=== PATIENT | female | born 1930 | race Caucasian/White ===

== ENCOUNTER 2018-01-01 04:55 | Emergency (ER) | payer MEDICARE | END 2018-01-01 06:35 | disposition home or self-care (01) | LOC: ERS 04:55 | DX: I83.92 Asymptomatic varicose veins of left lower extremity (principal); E03.9 Hypothyroidism, unspecified; K21.9 Gastro-esophageal reflux disease without esophagitis; E78.5 Hyperlipidemia, unspecified; I10 Essential (primary) hypertension; M81.0 Age-related osteoporosis without current pathological fracture; G20 Parkinson's disease; Z79.82 Long term (current) use of aspirin; Z79.02 Long term (current) use of antithrombotics/antiplatelets; Z79.899 Other long term (current) drug therapy | CPT/HCPCS: 99283 ==

== ENCOUNTER 2018-02-14 13:54 | Emergency (ER) | payer MEDICARE ==
[2018-02-14] MEDS ORDERED: Lorazepam 2 MG/ML VIAL ONE (14:29)
[2018-02-14 14:49] LABS: #Eosinphils 0.2 thou/uL (0.0-0.7); #Lymphocytes 1.3 thou/uL (1.20-3.40); #Monocytes 0.6 thou/uL (0.11-0.59); #Neutrophils 4.7 thou/uL (1.40-6.50); %Basophils 0.3 % (0.0-1.0); %Eosinophils 2.7 % (0.0-10.0); %Lymphocytes 19.5 % (21.0-51.0); %Monocytes 8.6 % (0.0-10.0); %Neutrophils 68.9 % (42.0-75.0); Hemoglobin 11.7 g/dL (12.0-16.0); Mean Corpuscular HGB CONC 33.6 g/dL (32.0-36.0); Mean Corpuscular Hemoglobin 33.2 pg (27.0-31.0); Mean Corpuscular Volume 98.8 fl (81.0-99.0); Mean Platelet Volume 8.1 fL (7.4-10.4); Platelet Count 178 thou/uL (130-400); RBC Distribution Width 12.2 % (11.5-14.5); Red Blood Cell (RBC) Count 3.51 mill/uL (4.20-5.40); White Blood Cell (WBC) Count 6.9 thou/uL (4.8-10.8)
--- NOTE | 2018-02-14 15:02 | RAD ---
PORTABLE UPRIGHT FRONTAL CHEST RADIOGRAPH: Date: 02-14-18 Comparison: 04-29-17 History: Altered mental status. FINDINGS: The patient is rotated to the right. There is mild diffuse increased interstitial density. Midline st ernotomy wires are present. No pneumothorax, pleural fluid, focal consolidation or alveolar edema. IMPRESSION: Chronic findings as described above. No radiographic evidence of acute cardiopulmonary disease. POS: [facility]
[2018-02-14 15:12] LABS: ALT (SGPT) Less than 7 U/L (8-55); AST (SGOT) 15 U/L (5-34); Albumin 3.8 g/dL (3.4-4.8); Alkaline Phosphatase 90 U/L (40-150); Anion Gap 15 mmol/L (10-20); BUN (Urea Nitrogen) 16 mg/dL (9.8-20.1); Bilirubin, Total 0.7 mg/dL (0.2-1.2); Calc. Creatinine Clearance 0 mL/min (70-130); Calcium 9.6 mg/dL (7.8-10.44); Carbon Dioxide 25 mmol/L (23-31); Chloride 97 mmol/L (98-107); Estimated GFR-MDRD 59; Globulin 2.7 g/dL (2.4-3.5); Glucose 98 mg/dL (83-110); Potassium 3.8 mmol/L (3.5-5.1); Protein, Total 6.5 g/dL (6.0-8.3); Sodium 133 mmol/L (136-145)
== END 2018-02-14 18:43 | disposition home or self-care (01) ==
LOC: ERS 13:54
DX: G20 Parkinson's disease (principal); E03.9 Hypothyroidism, unspecified; K21.9 Gastro-esophageal reflux disease without esophagitis; E78.5 Hyperlipidemia, unspecified; I10 Essential (primary) hypertension; Z79.899 Other long term (current) drug therapy; Z79.82 Long term (current) use of aspirin
CPT/HCPCS: 36415; 51701; 71045; 80053; 85025; 96361; 96374; A4353; J2060

== ENCOUNTER 2018-02-26 08:03 | Inpatient (IN) | payer MEDICARE ==
[2018-02-26] MEDS ORDERED: Nitroglycerin 0.4 MG TAB (25 Tab Bottle) ONE (08:32)
[2018-02-26] MEDS ORDERED: Water For Inject, Bacteriostat 30 ML ONE (08:36)
[2018-02-26] MEDS ORDERED: methylPREDNISolone Sod Succ/PF 125 MG/2 ML VIAL ONE (08:36)
[2018-02-26] MEDS ORDERED: diphenhydrAMINE 50 MG/ML VIAL ONE (08:36)
[2018-02-26 08:45] LABS: #Eosinphils 0.2 thou/uL (0.0-0.7); #Lymphocytes 5.2 thou/uL (1.20-3.40); #Monocytes 0.9 thou/uL (0.11-0.59); #Neutrophils 6.3 thou/uL (1.40-6.50); %Basophils 0.1 % (0.0-1.0); %Eosinophils 1.3 % (0.0-10.0); %Lymphocytes 41.4 % (21.0-51.0); %Monocytes 7.2 % (0.0-10.0); Hemoglobin 12.2 g/dL (12.0-16.0); Mean Corpuscular HGB CONC 32.7 g/dL (32.0-36.0); Mean Corpuscular Hemoglobin 33.3 pg (27.0-31.0); Platelet Count 218 thou/uL (130-400); RBC Distribution Width 12.5 % (11.5-14.5); Red Blood Cell (RBC) Count 3.67 mill/uL (4.20-5.40); White Blood Cell (WBC) Count 12.7 thou/uL (4.8-10.8)
[2018-02-26] MEDS ORDERED: Cefepime 2 GM, Syringe 2.5 ML in Sodium Chloride 0.9% 10 ML SLOW IVP SCH (08:45)
[2018-02-26] MEDS ORDERED: Famotidine/PF 20 mg/2ml Vial ONE (08:46)
[2018-02-26] MEDS ORDERED: Famotidine 20 MG TAB ONE (08:46)
[2018-02-26] MEDS ORDERED: Heparin 25,000 units/D5W 500 ML ONE (08:51)
[2018-02-26] MEDS ORDERED: Aspirin 300 MG Suppository ONE (08:51)
--- NOTE | 2018-02-26 09:02 | RAD ---
PORTABLE CHEST: Date: 02/26/18 HISTORY: Shortness of breath. COMPARISON: 02/14/18. FINDINGS: The lung mcnally appear clear. No infiltrate or vascular congestion. Heart size within normal range. P ostop sternotomy changes are noted. IMPRESSION: No acute process. POS: [facility]
[2018-02-26 09:04] LABS: ALT (SGPT) 21 U/L (8-55); AST (SGOT) 18 U/L (5-34); Albumin 4.2 g/dL (3.4-4.8); Alkaline Phosphatase 103 U/L (40-150); Anion Gap 27 mmol/L (10-20); BUN (Urea Nitrogen) 20 mg/dL (9.8-20.1); Bilirubin, Total 0.6 mg/dL (0.2-1.2); CK (CPK) 67 U/L (29-168); Calc. Creatinine Clearance 0 mL/min (70-130); Calcium 10.2 mg/dL (7.8-10.44); Carbon Dioxide 13 mmol/L (23-31); Chloride 102 mmol/L (98-107); Estimated GFR-MDRD 42; Globulin 3.4 g/dL (2.4-3.5); Glucose 265 mg/dL (83-110); Potassium 4.4 mmol/L (3.5-5.1); Protein, Total 7.6 g/dL (6.0-8.3); Sodium 138 mmol/L (136-145)
[2018-02-26 09:05] LABS: CKMB 2.4 ng/mL (0-6.6); Troponin I 0.102 ng/mL (< 0.028)
[2018-02-26 09:14] LABS: PTT 24.1 SEC (22.9-36.1); Prothrombin Time 13.6 SEC (12.0-14.7)
[2018-02-26 09:37] LABS: Base Excess-Venous -6.9 mmol/L (0 (+/- 2.5)); CO2 Tension (PvCO2) 24.2 mmHg (41.0-51.0); Calcium, Ionized 1.07 mmol/L (1.12-1.32); Hemoglobin - Calc 10.6 g/dL (12.0-18.0); O2 Tension (PvO2) 111.8 mmHg (35.0-45.0); Potassium 3.1 mmol/L (3.4-4.7); T. Carbon Dioxide 16.8 mmol/L (1.0-85.0); pH (Venous) 7.429 (7.35-7.45); vO2 Saturation-calc 98.6 % (94-98)
[2018-02-26 09:50] LABS: Lactic Acid 10.7 mmol/L (0.5-2.2)
[2018-02-26 10:17] LABS: Hemoglobin 10.2 g/dL (12.0-16.0)
[2018-02-26 10:59] LABS: Bilirubin Negative (Negative); Blood, Urine Trace (Negative); Glucose, Urine (Dipstick) Negative (Negative); Leukocyte Small (Negative); Nitrite Negative (Negative); Protein, Urine (Dipstick) Trace mg/dL (Neg-Trace); Urobilinogen 0.2 mg/dL (0.2-1.0); pH, Urine 7.5 (5.0-9.0)
[2018-02-26 11:00] LABS: Clarity CLEAR (Clear)
[2018-02-26 11:09] LABS: Bacteria/HPF 1+ HPF (None Seen); Hyaline Casts/LPF NONE SEEN LPF (0-3 Hyaline); RBC/HPF 0-3 HPF (0-3); Squamous Epithelial 0-3 HPF (0-3)
--- NOTE | 2018-02-26 11:45 | HP ---
PRIMARY CARE PHYSICIAN: Dr. Kofi Clay. REASON FOR ADMISSION: Lactic acidosis. HISTORY OF PRESENT ILLNESS: An 87-year-old female who lives at [facility]. Patient has Parkinson's disease. This morning, the patient was complaining of shortness of breath and she was having generalized tremor. The patient appeared sick and she was febrile. Patien t was tachycardic and tachypneic. She was shivering and that is why she was sent to emergency room f or evaluation. Unfortunately, this patient was not able to provide any history because of her cognit navi status when she arrived to emergency room, but her was present who provided some history. In the emergency room, patient was tachycardic with pulse 140, temperature 101.7 and she was hyperten sive as well as tachypneic. Sepsis alert was initiated. Initially there was concern of non-STEMI/ST CASSANDRA and that is why Dr. Ang came by and saw this patient, but patient was not having any STEMI and that is why cardiac catheterization was not done. This patient's routine blood tests showed lact ic acidosis. She also had leukocytosis and indeterminate troponin. Patient has a DNR status, which is confirmed with the patient's at bedside. REVIEW OF SYSTEMS: The following complete review of systems was negative, unless otherwise mentioned in the HPI or below: Constitutional: Weight loss or gain, ability to conduct usual activities. Skin: Rash, itching. Eyes: Double vision, pain. ENT/Mouth: Nose bleeding, neck stiffness, pain, tenderness. Cardiovascular: Palpitations, dyspnea on exertion, orthopnea. Respiratory: Shortness of breath, wheezing, cough, hemoptysis, fever or night sweats. Gastrointestinal: Poor appetite, abdominal pain, heartburn, nausea, vomiting, constipation, or diarr hea. Genitourinary: Urgency, frequency, dysuria, nocturia. Musculoskeletal: Pain, swelling. Neurologic/Psychiatric: Anxiety, depression. Allergy/Immunologic: Skin rash, bleeding tendency. Please see my HPI for pertinent positive and negative. All other review of systems reviewed and nega tive except as mentioned in the HPI. This patient is responsive to questions, but reliability of review of system is uncertain because of her current cognitive status. ALLERGIES: DEMEROL, IODINE. CURRENT HOME MEDICATIONS: Alpha lipoic acid 600 mg p.o. daily, amantadine 100 mg twice daily, Amitiz a 24 mcg twice daily, Asmanex inhaler daily, aspirin 81 mg p.o. daily, Lipitor 20 mg p.o. daily, carb idopa/levodopa 25/100 one tablet 4 times daily, clonidine 0.1 mg p.r.n. basis twice daily, Dexilant 3 0 mg p.o. daily, Exelon patch every day, folic acid 1 mg p.o. daily, gabapentin 600 mg p.o. at bedtim e, Synthroid 50 mcg p.o. daily, losartan 100 mg p.o. daily, melatonin 10 mg p.o. at bedtime, Toprol-X L 50 mg p.o. daily, mirabegron 25 mg p.o. daily, nizatidine 150 mg twice daily, Plavix 75 mg p.o. florecita ly, amlodipine 5 mg p.o. daily, chlorthalidone 25 mg p.o. daily, Ativan 1 mg p.o. q.6 hourly p.r.n. PAST MEDICAL HISTORY: Parkinson's disease, hypertension, gastroesophageal reflux disease, hypothyroi dism, recurrent urinary tract infection, dyslipidemia, chronic constipation, aortic valve replacement in 2013 at [facility], dementia, osteoporosis, and dysphagia on modified diet. PAST SURGICAL HISTORY: Aortic valve replacement, exploratory laparotomy for tubal , catarac t surgery, implanted device for urinary incontinence. PAST PSYCHIATRIC HISTORY: Dementia. SOCIAL HISTORY: Patient lives at [facility] living [facility] [place] with her . No h istory of tobacco, alcohol or illicit drug abuse. FAMILY HISTORY: Positive for stroke to her father. CODE STATUS: I spoke with the patient's and he does not want to be resuscitated on her in ca se of cardiopulmonary arrest and patient's is surrogate decision maker. EMERGENCY ROOM COURSE: The patient has received Maxipime 2 gram, Levaquin 750 mg. Patient was also given initially heparin drip, aspirin 324 mg, Pepcid 20 mg, Solu-Medrol 125 mg, Benadryl 50 mg, nitro glycerin 0.4 mg, vancomycin 1 gram, and IV fluid 2 liter. PHYSICAL EXAMINATION: VITAL SIGNS: On arrival, blood pressure 185/124, pulse 140, respiratory rate 26, temperature 101.7, saturation 96% on room air, weight 52.1 kilograms. GENERAL: Patient currently appears confused, follows simple command, respond to verbal questions, ge neralized shaky, tachycardic, hypertensive, and afebrile. HEAD: Normocephalic, atraumatic. EYES: Pupils round, reactive to light. Extraocular muscle intact. ENT: Dry mucous membranes, no oral lesion, no pharyngeal erythema, no exudate. NECK: Supple, no JVD, no thyromegaly, no carotid bruit, no jugular venous distention. LUNGS: Clear to auscultation without any rhonchi or rales. CARDIAC: S1 and S2 regular, tachycardia, no obvious murmur noted, no gallop, no rub. ABDOMEN: Soft, bowel sounds present, nontender, nondistended. No organomegaly, no mass, no suprapub ic tenderness. BACK: Examination unremarkable, no point tenderness. No CVA tenderness. EXTREMITIES: Upper extremity passive movements of all joints are normal. Lower extremity passive mo vements of all joints are normal. NEUROLOGIC: Patient does have gross tremor of both upper and lower extremity, no seizure activity. Difficult to assess neurologically, but she moves all 4 limbs. Her speech is normal. Responds to pa inful stimuli as well and sensation appears to be normal. SKIN: No skin rash. PSYCHIATRIC: Normal affect. HEMATOLOGICAL SYSTEM: No lymphadenopathy. IMAGING DATA AND SIGNIFICANT LABORATORY DATA: 1. EKG showing sinus tachycardia/supraventricular tachycardia, incomplete right bundle branch block pattern, ST-T changes in the anterolateral lead. 2. Chest x-ray based on my review, no acute cardiopulmonary process. 3. CBC: WBC 12.7, hemoglobin 12.2, platelet 218. INR 1.0. 4. VBG: A pH 7.42, pCO2 24.2, pO2 111.8, bicarbonate 16. 5. BMP: Sodium 138, potassium 4.4, chloride 102, carbon dioxide 13, anion gap 27, BUN 20, creatinin e 1.22, glucose 265, calcium 10.2, lactic acid 14.7. 6. LFT: AST 18, ALT 21, alkaline phosphatase 103, albumin 4.2, CK 67, CK-MB 2.4, troponin 0.102. U rinalysis: Leukocyte esterase small. Influenza A and B negative. ASSESSMENT AND PLAN/IMPRESSION: 1. Sepsis. The patient meets sepsis criteria as she has have fever of 101, tachycardia, tachypnea, leukocytosis and lactic acidosis. Source of infection is unclear, but suspecting urinary tract infec tion. We will check urinalysis and send urine culture. Her chest x-ray is normal. Her LFT is also normal. Her skin examination is unremarkable. We will start broad spectrum antibiotic therapy with cefepime, Levaquin, vancomycin and based on culture result, we will narrow down antibiotic spectrum. 2. Altered mental status, likely related with the sepsis and this is consistent with acute encephalo kath. 3. Lactic acidosis likely related with a part of sepsis. Patient will be given IV fluid and we will monitor lactic acid level. We will also check total CK level which is normal. 4. Demand ischemia of myocardium. We will do serial cardiac enzymes x3 to rule out acute coronary s yndrome. 5. Macrocytosis. We will start folic acid and vitamin B12 therapy while in hospital. 6. Hypokalemia. We will replace potassium with IV fluid. 7. Urinary tract infection. We will follow up urine culture result. Patient is already on broad sp ectrum antibiotic therapy. 8. Parkinson's disease. We will continue amantadine 100 mg twice daily, carbidopa/levodopa 25/100 o ne tablet 4 times daily. 9. Dementia. We will continue Exelon patch every day. 10. Hypothyroidism. We will continue Synthroid 50 mcg p.o. daily and check TSH level. 11. Chronic constipation. Continue Amitiza 24 mcg twice daily. 12. Dyslipidemia. Continue Lipitor 20 mg p.o. at bedtime. 13. Hypertension. We will continue losartan 100 mg p.o. daily, metoprolol succinate 50 mg p.o. khushi y, amlodipine 5 mg p.o. daily and chlorthalidone 25 mg p.o. daily. 14. Anxiety with depression. We will continue lorazepam on p.r.n. basis. 15. Gastroesophageal reflux disease. We will continue Protonix 40 mg p.o. daily. 16. Asthma/chronic obstructive pulmonary disease. We will continue Dulera 2 puff inhalation daily. 17. Deep venous thrombosis prophylaxis, Lovenox 40 mg subcu daily. 18. Gastrointestinal prophylaxis, Protonix 40 mg p.o. daily. CODE STATUS: I spoke with the patient's , patient is DNR. Patient's is surrogate dec ision maker. Disposition plan based on clinical course. We are expecting patient's stay in hospital more than 2 m idnights. Plan of care discussed with the patient and patient's at bedside in the emergency room.
[2018-02-26] MEDS ORDERED: Senokot 8.6 MG TAB PO PRN (12:06)
[2018-02-26] MEDS ORDERED: Ondansetron HCl/PF 4 MG/2 ML Vial IVP PRN (12:06)
[2018-02-26] MEDS ORDERED: Diabetic Tussin 200 MG/10 ML UDCUP PO PRN (12:06)
[2018-02-26] MEDS ORDERED: Zolpidem Tartrate 5 MG TAB PO PRN (12:06)
[2018-02-26] MEDS ORDERED: Mag-Al 1200 mg/1200 mg/30 ML UDCUP PO PRN (12:06)
[2018-02-26] MEDS ORDERED: cloNIDine 0.1 MG TAB PO PRN (12:06)
[2018-02-26] MEDS ORDERED: Loratadine 10 MG TAB PO PRN (12:06)
[2018-02-26] MEDS ORDERED: Loperamide HCl 2 MG CAP PO PRN (12:06)
[2018-02-26] MEDS ORDERED: Eucerin (Mineral Oil/Petrolatum,White) 30 gm Jar TOP PRN (12:06)
[2018-02-26] MEDS ORDERED: Artificial Tear Sol 15 ML BOT EA EYE PRN (12:06)
[2018-02-26] MEDS ORDERED: Ondansetron ODT 4 MG TAB PO PRN (12:06)
[2018-02-26] MEDS ORDERED: hydrALAZINE 20 MG/ML VIAL SLOW IVP PRN (12:06)
[2018-02-26] MEDS ORDERED: Melatonin 3 MG TAB PO PRN (12:06)
[2018-02-26] MEDS ORDERED: Lorazepam 1 MG TAB PO PRN (12:06)
[2018-02-26] MEDS ORDERED: HYDROcodone/Acetaminophen 5/325 mg Tablet PO PRN (12:06)
[2018-02-26] MEDS ORDERED: Chloraseptic Spray 180 ml Bottle PO PRN (12:06)
[2018-02-26] MEDS ORDERED: Sodium Chloride 0.65% Nasal 44 ML BOT EA NARE PRN (12:06)
[2018-02-26] MEDS ORDERED: Milk Of Magnesia 30 ML UDCUP PO PRN (12:06)
[2018-02-26 12:56] LABS: Lactic Acid 2.7 mmol/L (0.5-2.2)
--- NOTE | 2018-02-26 14:02 | CON ---
DATE OF CONSULTATION: 02/26/2018 CRITICAL CARE NOTE REASON FOR CONSULTATION: Acute myocardial infarction. HISTORY OF PRESENT ILLNESS: Ms. Ybarra is a very pleasant 87-year-old woman who was seen and evaluate d in the past. She has a history of advanced Parkinson's disease. Most of the history is obtained f rom her . He states she began having shakiness early this morning. She was given Ativan with some improvement. This then continued. EMS was summoned. She was seen and evaluated in the emerge ncy room where she was found to have a fever of 102. EKG was also performed. Her states she denied any chest pain, although patient states she did have some mild discomfort. EKG did suggest S T segment elevation noted laterally. PAST MEDICAL HISTORY: Aortic valve replacement, advanced Parkinson's disease, hyperlipidemia, hypert ension, acid reflux, seasonal allergies, TIA. ALLERGIES: MEPERIDINE, IODINE. HOME MEDICATIONS: Include Plavix, Exelon patch, carbidopa, Janel-C, melatonin, folic acid, Dexilant, Myrbetriq, amantadine, gabapentin, Imodium, MiraLax, ProAir, clonidine, aspirin, and Asmanex. REVIEW OF SYSTEMS: Difficult to obtain. PHYSICAL EXAMINATION: GENERAL: Patient is a pleasant female who is in no acute distress. The patient appears her stated a ge. Significant tremors present. VITAL SIGNS: Blood pressure 110/70, pulse 80, respirations 20. NEUROLOGIC: The patient is alert and oriented times 3 with no focal neurologic deficits. HEENT: Sclerae without icterus. Mouth has moist mucous membranes with normal pallor. NECK: No JVD. Carotid upstroke brisk. No bruits bilaterally. LUNGS: Clear to auscultation with unlabored respirations. BACK: No scoliosis or kyphosis. CARDIAC: Regular rate and rhythm with normal S1 and S2. No S3 or S4 noted. No significant rubs, mu rmurs, thrills, or gallops noted throughout the precordium. PMI is not displaced. There is no uma ternal heave. ABDOMEN: Soft, nontender, nondistended. No peritoneal signs present. No hepatosplenomegaly. No ab normal striae. EXTREMITIES: 2+ femoral and 2+ dorsalis pedis pulses. No cyanosis, clubbing, or edema. SKIN: No gross abnormalities. PERTINENT LABORATORY DATA AND IMAGING DATA: Peak troponin 0.102. EKG; normal sinus rhythm, ST segme nt elevation noted laterally. IMPRESSION: 1. Acute myocardial infarction. 2. Febrile illness of unknown etiology. 3. Advanced Parkinson's disease. 4. CONTRAST allergy. RECOMMENDATIONS: I had a long discussion with the about how to proceed. The patient states that both he and his do not wish for any heroic measures. He states her quality of life at this point is extremely poor. I did state to proceeding with a more aggressive approach. At this point, would not change her quality of life. She would like to proceed with a more conservative approach. He does not want to proceed with angiography. At this point, we would proceed with heparin drip, an tibiotic therapy, IV fluids and continue supportive care. Patient is DNR/DNI. ST elevation may also be due to pericarditis given minimal to no symptoms but cannot completely exclude acute myocardial i nfarction. We will continue to rule out by CK and troponins.
[2018-02-26] MEDS ORDERED: Labetalol HCl 100 MG/20 ML VIAL ONE (14:30)
[2018-02-26] MEDS ORDERED: Heparin 10,000 UNITS/ 10 ML VIAL ONE (16:00)
[2018-02-26] MEDS: NS 0.9% w/ 20 MEQ KCL 1,000 ML/1,000 ML BAG IV SCH (18:17)
[2018-02-26] MEDS: Lubiprostone 24 MCG CAP PO SCH (18:17)
[2018-02-26] MEDS: Carbidopa/Levodopa 25-100 mg Tablet PO SCH ×3 (18:17→21:23)
[2018-02-26 18:18] LABS: CKMB 29.9 ng/mL (0-6.6); Troponin I 4.493 ng/mL (< 0.028)
[2018-02-26] MEDS: Mometasone 200 MCG HFA INHALER INH SCH (18:38)
[2018-02-26] MEDS ORDERED: Cefepime 2 GM in Sodium Chloride 0.9% 100 ML IVPB SCH (21:00)
[2018-02-26] MEDS: Amantadine HCl 100 mg Capsule PO SCH (21:21)
[2018-02-26] MEDS: Atorvastatin Calcium 20 MG TAB PO SCH (21:22)
[2018-02-26] MEDS: Gabapentin 300 MG CAP PO SCH (21:23)
[2018-02-26] MEDS: Acetaminophen 650 MG Suppository PR PRN (21:29)
[2018-02-26] MEDS: Cefepime 2 GM, Syringe 2.5 ML in Sodium Chloride 0.9% 10 ML SLOW IVP SCH (21:37)
[2018-02-27] MEDS: NS 0.9% w/ 20 MEQ KCL 1,000 ML/1,000 ML BAG IV SCH ×3 (03:11→20:32)
[2018-02-27] MEDS: Levothyroxine Sodium 50 MCG TAB PO SCH (06:11)
[2018-02-27 06:16] LABS: Lactic Acid 1.1 mmol/L (0.5-2.2)
[2018-02-27 06:21] LABS: #Lymphocytes 1.3 thou/uL (1.20-3.40); #Monocytes 1.1 thou/uL (0.11-0.59); #Neutrophils 7.7 thou/uL (1.40-6.50); %Basophils 0.2 % (0.0-1.0); %Eosinophils 0.2 % (0.0-10.0); %Monocytes 10.4 % (0.0-10.0); %Neutrophils 76.3 % (42.0-75.0); Hemoglobin 9.3 g/dL (12.0-16.0); Mean Corpuscular HGB CONC 33.7 g/dL (32.0-36.0); Mean Corpuscular Hemoglobin 33.2 pg (27.0-31.0); Mean Corpuscular Volume 98.4 fl (81.0-99.0); Mean Platelet Volume 8.2 fL (7.4-10.4); Platelet Count 167 thou/uL (130-400); RBC Distribution Width 12.6 % (11.5-14.5); White Blood Cell (WBC) Count 10.1 thou/uL (4.8-10.8)
[2018-02-27 06:26] LABS: ALT (SGPT) Less than 7 U/L (8-55); AST (SGOT) 47 U/L (5-34); Albumin 3.4 g/dL (3.4-4.8); Alkaline Phosphatase 76 U/L (40-150); Anion Gap 13 mmol/L (10-20); BUN (Urea Nitrogen) 19 mg/dL (9.8-20.1); Bilirubin, Total 0.6 mg/dL (0.2-1.2); Calc. Creatinine Clearance 43 mL/min (70-130); Calcium 8.6 mg/dL (7.8-10.44); Carbon Dioxide 22 mmol/L (23-31); Chloride 111 mmol/L (98-107); Estimated GFR-MDRD 66; Globulin 2.4 g/dL (2.4-3.5); Glucose 136 mg/dL (83-110); Potassium 3.4 mmol/L (3.5-5.1); Protein, Total 5.8 g/dL (6.0-8.3); Sodium 143 mmol/L (136-145)
[2018-02-27 06:30] LABS: Troponin I 10.453 ng/mL (< 0.028)
[2018-02-27] MEDS ORDERED: Potassium Chloride 20 MEQ TAB PO SCH (06:45)
[2018-02-27 06:58] LABS: Cardiac Risk 2.3 (Less than 4.5); Magnesium 1.5 mg/dL (1.6-2.6)
[2018-02-27] MEDS: Mometasone 200 MCG HFA INHALER INH SCH ×2 (07:29→20:01)
[2018-02-27] MEDS ORDERED: Magnesium Sulfate 4 GM in Sodium Chloride 0.9% 250 ML 250 ML IVPB SCH (07:30)
[2018-02-27 08:27] VITALS: BMI 24.4
[2018-02-27] MEDS ORDERED: Chlorthalidone 25 MG TAB PO SCH (09:00)
[2018-02-27] MEDS ORDERED: RASAGILINE MESYLATE 1 MG PO SCH (09:00)
[2018-02-27] MEDS ORDERED: ZINC PO SCH (09:00)
[2018-02-27] MEDS ORDERED: VIT A PO SCH (09:00)
[2018-02-27] MEDS ORDERED: Enoxaparin Sodium 40 MG/0.4 ML SYRINGE SC SCH (09:00)
[2018-02-27] MEDS ORDERED: VIT E PO SCH (09:00)
[2018-02-27] MEDS ORDERED: ALPHA LIPOIC ACID 600 MG PO SCH (09:00)
[2018-02-27] MEDS ORDERED: COPPER PO SCH (09:00)
[2018-02-27] MEDS ORDERED: VIT C PO SCH (09:00)
--- NOTE | 2018-02-27 10:04 | PDOC.PN ---
- Subjective Encounter Start Date: 02/27/18 Encounter Start Time: 07:30 Patient seen and examined. No new complaints. No overnight events pt is sleepy, bedside - Objective Resuscitation Status: Resuscitation Status DNR:Do Not Resuscitate MAR Reviewed: Yes Vital Signs & Weight: Vital Signs (12 hours) Temp Pulse Resp BP Pulse Ox 02/27/18 07:31 96 02/27/18 07:29 90 17 96 02/27/18 04:00 98.9 F 94 18 127/65 94 L 02/27/18 00:00 100.4 F H Weight Admit Weight 121 lb 6.4 oz Weight 125 lb 3.2 oz I&O: 02/26/18 02/27/18 02/28/18 06:59 06:59 06:59 Intake Total 1089 Balance 1089 Result Diagrams: 02/27/18 05:42 02/27/18 05:42 EKG Reviewed by me: Yes Phys Exam - Physical Examination Constitutional: NAD HEENT: PERRLA, moist MMs, sclera anicteric Neck: no JVD, supple Respiratory: no wheezing, no rales, no rhonchi Cardiovascular: RRR, no significant murmur, no rub Gastrointestinal: soft, non-tender, no distention, positive bowel sounds Musculoskeletal: no edema, pulses present Neurological: non-focal, moves all 4 limbs Lymphatic: no nodes Psychiatric: normal affect Skin: no rash, normal turgor Dx/Plan (1) NSTEMI (non-ST elevated myocardial infarction) Code(s): I21.4 - NON-ST ELEVATION (NSTEMI) MYOCARDIAL INFARCTION Status: Acute (2) Encephalopathy acute Code(s): G93.40 - ENCEPHALOPATHY, UNSPECIFIED Status: Acute (3) Demand ischemia of myocardium Code(s): I24.8 - OTHER FORMS OF ACUTE ISCHEMIC HEART DISEASE Status: Acute (4) Hypokalemia Code(s): E87.6 - HYPOKALEMIA Status: Acute (5) Lactic acidosis Code(s): E87.2 - ACIDOSIS Status: Acute (6) Sepsis with acute organ dysfunction Code(s): A41.9 - SEPSIS, UNSPECIFIED ORGANISM; R65.20 - SEVERE SEPSIS WITHOUT SEPTIC SHOCK Status: Acute (7) UTI (urinary tract infection) Status: Acute (8) Dementia Code(s): F03.90 - UNSPECIFIED DEMENTIA WITHOUT BEHAVIORAL DISTURBANCE Status: Chronic (9) Dyslipidemia Code(s): E78.5 - HYPERLIPIDEMIA, UNSPECIFIED Status: Chronic (10) GERD (gastroesophageal reflux disease) Code(s): K21.9 - GASTRO-ESOPHAGEAL REFLUX DISEASE WITHOUT ESOPHAGITIS Status: Chronic Qualifiers: (11) H/O aortic valve replacement Code(s): Z95.2 - PRESENCE OF PROSTHETIC HEART VALVE Status: Chronic (12) HTN (hypertension) Code(s): I10 - ESSENTIAL (PRIMARY) HYPERTENSION Status: Chronic Qualifiers: (13) Hypothyroidism Code(s): E03.9 - HYPOTHYROIDISM, UNSPECIFIED Status: Chronic (14) Macrocytic anemia Code(s): D53.9 - NUTRITIONAL ANEMIA, UNSPECIFIED Status: Chronic (15) Parkinson disease Code(s): G20 - PARKINSON'S DISEASE Status: Chronic (16) Hypomagnesemia Code(s): E83.42 - HYPOMAGNESEMIA Status: Acute - Plan cont current plan of care, plan discussed w/ family, continue antibiotics * continue cefepime, levaquin and vancomycin * follow culture * medication reviewed as below * symptomatic treatment * cardiology on case * add lovenox 1 mg /kg sc bid * home medication reconciled * discussed with * get echo today * will monitor. * replace potassium and magnesium * repeat labs tomorrow Review of Systems - Review of Systems Other: today unable to review due to her sleepiness and level of her cognitive status - Medications/Allergies Allergies/Adverse Reactions: Allergies Allergy/AdvReac Type Severity Reaction Status Date / Time Iodine and Iodide Containing Allergy Verified 04/29/17 10:35 Produc meperidine HCl [From Demerol] Allergy Verified 04/29/17 10:35 Medications: Current Medications Acetaminophen (Tylenol) 650 mg PA Q4H PRN PRN Reason: Headache/Fever or Pain Last Admin: 02/26/18 21:29 Dose: 650 mg Hydrocodone Bitart/Acetaminophen ([place] 5/325) 1 tab PO Q4H PRN PRN Reason: Moderate Pain (4-6) Al Hydroxide/Mg Hydroxide (Maalox) 30 ml PO Q6H PRN PRN Reason: Heartburn or Indigestion Amantadine HCl (Symmetrel) 100 mg PO BID JEANE Last Admin: 02/26/18 21:21 Dose: 100 mg Amlodipine Besylate (Norvasc) 5 mg PO DAILY [facility] Artificial Tears (Tears Renewed 15ml Bottle) 0 drop EA EYE PRN PRN PRN Reason: Dry Eyes Aspirin (Aspirin Chewable) 81 mg PO DAILY [facility] Atorvastatin Calcium (Lipitor) 20 mg PO HS [facility] Last Admin: 02/26/18 21:22 Dose: 20 mg Carbidopa/Levodopa (Sinemet Cr 50/200) 0.5 tab PO 0600,1000,1400,1800 [facility] Carbidopa/Levodopa (Sinemet Cr 50/200) 0.5 tab PO 2200 [facility] Clonidine (Catapres) 0.1 mg PO Q4H PRN PRN Reason: Systolic BP > 180 Clopidogrel Bisulfate (Plavix) 75 mg PO DAILY [facility] Cyanocobalamin (Vitamin B-12) 1,000 mcg PO DAILY [facility] Enoxaparin Sodium (Lovenox) 60 mg SC 0900,2100 [facility] Folic Acid (Folvite) 1 mg PO DAILY [facility] Gabapentin (Neurontin) 600 mg PO HS [facility] Last Admin: 02/26/18 21:23 Dose: 600 mg Guaifenesin (Robitussin Sf) 200 mg PO Q4H PRN PRN Reason: Cough Hydralazine HCl (Apresoline) 10 mg SLOW IVP Q4H PRN PRN Reason: Systolic BP > 180 Hydrochlorothiazide (Hydrochlorothiazide) 25 mg PO QAM [facility] Levofloxacin 500 mg/ Device 100 mls @ 100 mls/hr IVPB Q24HR@1000 [facility] Potassium Chloride/Sodium Chloride (Ns 0.9% W/ 20 Meq Kcl) 1,000 ml in 1,000 mls @ 75 mls/hr IV .[id number] [facility] Last Admin: 02/27/18 03:11 Dose: 1,000 mls Vancomycin HCl 750 mg/ Sodium (Chloride) 250 mls @ 250 mls/hr IVPB Q24HR@0900 [facility] Cefepime HCl 2 gm/ Syringe 2.5 (ml/ Sodium Chloride) 12.5 mls @ 150 mls/hr SLOW IVP Q12HR [facility] Last Admin: 02/26/18 21:37 Dose: 12.5 mls Magnesium Sulfate 4 gm/ Sodium (Chloride) 258 mls @ 86 mls/hr IVPB 0730 [facility] Stop: 02/27/18 10:29 Levothyroxine Sodium (Synthroid) 50 mcg PO 0600 [facility] Last Admin: 02/27/18 06:11 Dose: 50 mcg Loperamide HCl (Imodium) 2 mg PO PRN PRN PRN Reason: Diarrhea/Loose Stools Loratadine (Claritin) 10 mg PO DAILYPRN PRN PRN Reason: Sinus Symptoms Lorazepam (Ativan) 1 mg PO Q4H PRN PRN Reason: Anxiety/Agitation Losartan Potassium (Cozaar) 100 mg PO DAILY [facility] Lubiprostone (Amitiza) 24 mcg PO BID-WM [facility] Last Admin: 02/26/18 18:17 Dose: 24 mcg Magnesium Hydroxide (Milk Of Magnesium) 30 ml PO DAILYPRN PRN PRN Reason: Constipation Melatonin (Melatonin) 10 mg PO HS [facility] Metoprolol Succinate (Toprol Xl) 50 mg PO DAILY [facility] Mineral Oil/White Petrolatum (Eucerin Cream) 0 gm TOP BIDPRN PRN PRN Reason: Dry Skin Mirabegron (Myrbetriq Er) 25 mg PO DAILY [facility] Miscellaneous Medication (Pharmacy To Dose) 1 each IVPB PRN PRN PRN Reason: Pharmacy to dose Mometasone Furoate (Asmanex Hfa 200 Mcg) 1 puff INH BID-RT [facility] Last Admin: 02/27/18 07:29 Dose: Not Given Multivitamins/Minerals (Ocuvite With Lutein) 1 tab PO BID [facility] Ondansetron HCl (Zofran Odt) 4 mg PO Q6H PRN PRN Reason: Nausea/Vomiting Ondansetron HCl (Zofran) 4 mg IVP Q6H PRN PRN Reason: Nausea/Vomiting Pantoprazole Sodium (Protonix) 40 mg PO DAILY [facility] (Alpha Lipoic Acid [ Alpha Lipoic Acid] 600 Mg) 0 each PO DAILY [facility] (Rasagiline Mesylate ([Azilect] 1 Mg)) 0 each PO DAILY [facility] Phenol (Chloraseptic [place] 180 Ml Bot) 0 ml PO PRN PRN PRN Reason: Sore Throat Rivastigmine (Exelon Patch) 9.5 mg TD DAILY [facility] Saccharomyces Boulardii (Florastor) 250 mg PO DAILY [facility] Senna (Senokot) 2 tab PO HSPRN PRN PRN Reason: Constipation Sodium Chloride ([place] Nasal [place] 0.65%) 0 ml EA NARE QIDPRN PRN PRN Reason: Nasal Congestion Sodium Chloride (Flush - Normal Saline) 10 ml IVF Q12HR JEANE Sodium Chloride (Flush - Normal Saline) 10 ml IVF PRN PRN PRN Reason: Saline Flush Zolpidem Tartrate (Ambien) 5 mg PO HSPRN PRN PRN Reason: Insomnia
[2018-02-27] MEDS: Vancomycin HCl 750 MG in Sodium Chloride 0.9% 250 ML 250 ML IVPB SCH (11:00)
[2018-02-27] MEDS: Lubiprostone 24 MCG CAP PO SCH ×3 (11:01→18:43)
[2018-02-27] MEDS: Rivastigmine 9.5mg/24 Hour PATCH TD SCH (11:01)
[2018-02-27] MEDS: Losartan 25 MG TAB PO SCH (11:02)
[2018-02-27] MEDS: Clopidogrel Bisulfate 75 MG TAB PO SCH (11:02)
[2018-02-27] MEDS: Hydrochlorothiazide 25 MG TAB PO SCH (11:02)
[2018-02-27] MEDS: Vit A,C & E/Lutein/Minerals Tablet PO SCH ×2 (11:02→20:11)
[2018-02-27] MEDS: Carbidopa/Levodopa CR 50-200 mg Tablet PO SCH ×4 (11:03→20:38)
[2018-02-27] MEDS: Cyanocobalamin (Vitamin B-12) 1,000 MCG TAB PO SCH (11:03)
[2018-02-27] MEDS: Amantadine HCl 100 mg Capsule PO SCH ×2 (11:06→20:11)
[2018-02-27] MEDS: Saccharomyces boulardii 250 MG CAP PO SCH (11:06)
[2018-02-27] MEDS: Amlodipine 5 MG TAB PO SCH (11:07)
[2018-02-27] MEDS: Folic Acid 1 MG TAB PO SCH (11:07)
[2018-02-27] MEDS: Enoxaparin Sodium 60 MG/0.6 ML SYRINGE SC SCH ×2 (11:12→20:12)
[2018-02-27] MEDS: Cefepime 2 GM, Syringe 2.5 ML in Sodium Chloride 0.9% 10 ML SLOW IVP SCH ×2 (11:23→20:15)
--- NOTE | 2018-02-27 15:32 | PRG ---
DATE OF SERVICE: 02/27/2018 SUBJECTIVE: Ms. Ybarra's status is stable. She has no current complaints. Her troponin was mildly e levated at 4. Echo is currently pending. PHYSICAL EXAMINATION: VITAL SIGNS: Blood pressure 136/63, pulse 88, temperature afebrile. LUNGS: Clear to auscultation. CARDIAC: Regular rate and rhythm. ABDOMEN: Soft, nontender, nondistended. EXTREMITIES: No edema. PERTINENT LABORATORY DATA: Hemoglobin 9.3. CK-MB down trending from 29-27 with a troponin of 10. IMPRESSION: 1. Acute myocardial infarction. 2. Sepsis syndrome. 3. Advanced Parkinson's disease. RECOMMENDATIONS: Continue current medical therapy. She is currently on Lovenox. We will continue o thee the next 24 hours. She is currently asymptomatic. Continue antibiotic treatment. She has not h ad fever over the last 12 hours. Continue conservative therapy.
[2018-02-27] MEDS: Acetaminophen 650 MG Suppository PR PRN (19:39)
[2018-02-27] MEDS: Atorvastatin Calcium 20 MG TAB PO SCH (20:11)
[2018-02-27] MEDS: Gabapentin 300 MG CAP PO SCH (20:11)
[2018-02-27] MEDS: Melatonin 3 MG TAB PO SCH (20:15)
[2018-02-27] MEDS ORDERED: LEVODOPA PO SCH (21:00)
[2018-02-27] MEDS ORDERED: CARBIDOPA PO SCH (21:00)
[2018-02-28] MEDS: NS 0.9% w/ 20 MEQ KCL 1,000 ML/1,000 ML BAG IV SCH ×2 (03:59→09:15)
[2018-02-28 05:24] LABS: Anion Gap 12 mmol/L (10-20); BUN (Urea Nitrogen) 18 mg/dL (9.8-20.1); Calc. Creatinine Clearance 51 mL/min (70-130); Calcium 8.5 mg/dL (7.8-10.44); Carbon Dioxide 22 mmol/L (23-31); Chloride 115 mmol/L (98-107); Estimated GFR-MDRD 80; Glucose 124 mg/dL (83-110); Magnesium 2.1 mg/dL (1.6-2.6); Potassium 3.5 mmol/L (3.5-5.1); Sodium 145 mmol/L (136-145)
[2018-02-28 05:36] LABS: Band 4 % (5-11); Hemoglobin 9.7 g/dL (12.0-16.0); Lymphocytes 12 % (21-51); MDiff Complete? YES; Mean Corpuscular HGB CONC 33.7 g/dL (32.0-36.0); Mean Corpuscular Hemoglobin 33.5 pg (27.0-31.0); Mean Corpuscular Volume 99.5 fl (81.0-99.0); Mean Platelet Volume 8.4 fL (7.4-10.4); Monocytes 6 % (0-10); Neutrophil 78 % (42-75); PLT Morphology Comment Appears Adequate; Platelet Count 161 thou/uL (130-400); RBC Distribution Width 12.7 % (11.5-14.5); Red Blood Cell (RBC) Count 2.89 mill/uL (4.20-5.40); White Blood Cell (WBC) Count 14.3 thou/uL (4.8-10.8)
[2018-02-28] MEDS: Mometasone 200 MCG HFA INHALER INH SCH ×2 (07:41→19:11)
[2018-02-28] MEDS: Carbidopa/Levodopa CR 50-200 mg Tablet PO SCH ×5 (08:55→22:18)
[2018-02-28] MEDS: Folic Acid 1 MG TAB PO SCH (09:01)
[2018-02-28] MEDS: Cyanocobalamin (Vitamin B-12) 1,000 MCG TAB PO SCH (09:02)
[2018-02-28] MEDS: Vit A,C & E/Lutein/Minerals Tablet PO SCH ×2 (09:03→22:18)
[2018-02-28] MEDS: Hydrochlorothiazide 25 MG TAB PO SCH (09:18)
[2018-02-28] MEDS: Losartan 25 MG TAB PO SCH (09:18)
[2018-02-28] MEDS: Cefepime 2 GM, Syringe 2.5 ML in Sodium Chloride 0.9% 10 ML SLOW IVP SCH ×2 (09:32→22:16)
[2018-02-28] MEDS: Levothyroxine Sodium 50 MCG TAB PO SCH (09:42)
[2018-02-28] MEDS: Amantadine HCl 100 mg Capsule PO SCH ×2 (09:43→22:17)
[2018-02-28] MEDS: Amlodipine 5 MG TAB PO SCH (09:44)
[2018-02-28] MEDS: Enoxaparin Sodium 60 MG/0.6 ML SYRINGE SC SCH ×2 (09:51→22:15)
[2018-02-28] MEDS: Clopidogrel Bisulfate 75 MG TAB PO SCH (09:51)
[2018-02-28] MEDS: Saccharomyces boulardii 250 MG CAP PO SCH (09:51)
[2018-02-28] MEDS: Rivastigmine 9.5mg/24 Hour PATCH TD SCH (09:53)
[2018-02-28] MEDS ORDERED: Vancomycin HCl 1.25 GM in Sodium Chloride 0.9% 250 ML 250 ML IVPB SCH (10:00)
[2018-02-28] MEDS: Vancomycin HCl 750 MG in Sodium Chloride 0.9% 250 ML 250 ML IVPB SCH ×2 (10:01→10:06)
--- NOTE | 2018-02-28 11:49 | PDOC.PN ---
- Subjective Encounter Start Date: 02/28/18 Encounter Start Time: 08:00 this morning pt's and son was present bedside, pt was sleepy, last night she was given ativan, she is hypoxic and she is tachypeic, no fever today - Objective Resuscitation Status: Resuscitation Status DNR:Do Not Resuscitate MAR Reviewed: Yes Vital Signs & Weight: Vital Signs (12 hours) Temp Pulse Resp BP Pulse Ox 02/28/18 10:22 98.8 F 93 L 02/28/18 08:53 98.8 F 101 H 20 93 L 02/28/18 08:50 99.6 F 101 H 20 174/80 H 90 L 02/28/18 04:00 98.1 F 94 18 147/69 H 92 L Weight Admit Weight 121 lb 6.4 oz Weight 125 lb 3.2 oz I&O: 02/27/18 02/28/18 03/01/18 06:59 06:59 06:59 Intake Total 1089 360 Balance 1089 360 Result Diagrams: 02/28/18 04:28 02/28/18 04:28 Radiology Reviewed by me: Yes (chest xray) EKG Reviewed by me: Yes (tachycardia) Phys Exam - Physical Examination Constitutional: NAD sleepy HEENT: PERRLA, sclera anicteric Neck: no nodes, no JVD, supple Respiratory: no wheezing, no rales, no rhonchi Cardiovascular: RRR, no significant murmur Gastrointestinal: soft, no distention, positive bowel sounds Musculoskeletal: no edema, pulses present Neurological: moves all 4 limbs Lymphatic: no nodes Skin: no rash, normal turgor Dx/Plan (1) NSTEMI (non-ST elevated myocardial infarction) Code(s): I21.4 - NON-ST ELEVATION (NSTEMI) MYOCARDIAL INFARCTION Status: Acute (2) Encephalopathy acute Code(s): G93.40 - ENCEPHALOPATHY, UNSPECIFIED Status: Acute (3) Demand ischemia of myocardium Code(s): I24.8 - OTHER FORMS OF ACUTE ISCHEMIC HEART DISEASE Status: Acute (4) Hypokalemia Code(s): E87.6 - HYPOKALEMIA Status: Acute (5) Lactic acidosis Code(s): E87.2 - ACIDOSIS Status: Acute (6) Sepsis with acute organ dysfunction Code(s): A41.9 - SEPSIS, UNSPECIFIED ORGANISM; R65.20 - SEVERE SEPSIS WITHOUT SEPTIC SHOCK Status: Acute (7) UTI (urinary tract infection) Status: Acute (8) Dementia Code(s): F03.90 - UNSPECIFIED DEMENTIA WITHOUT BEHAVIORAL DISTURBANCE Status: Chronic (9) Dyslipidemia Code(s): E78.5 - HYPERLIPIDEMIA, UNSPECIFIED Status: Chronic (10) GERD (gastroesophageal reflux disease) Code(s): K21.9 - GASTRO-ESOPHAGEAL REFLUX DISEASE WITHOUT ESOPHAGITIS Status: Chronic Qualifiers: (11) H/O aortic valve replacement Code(s): Z95.2 - PRESENCE OF PROSTHETIC HEART VALVE Status: Chronic (12) HTN (hypertension) Code(s): I10 - ESSENTIAL (PRIMARY) HYPERTENSION Status: Chronic Qualifiers: (13) Hypothyroidism Code(s): E03.9 - HYPOTHYROIDISM, UNSPECIFIED Status: Chronic (14) Macrocytic anemia Code(s): D53.9 - NUTRITIONAL ANEMIA, UNSPECIFIED Status: Chronic (15) Parkinson disease Code(s): G20 - PARKINSON'S DISEASE Status: Chronic (16) Hypomagnesemia Code(s): E83.42 - HYPOMAGNESEMIA Status: Acute - Plan cont current plan of care, plan discussed w/ family, continue antibiotics, PT/OT , social contact worker * today echo will be done * will need placement on discharge * today chest xray ordered and reviwed * add duoneb therapy * continue current empiric antibiotics, cefepime and vancomycin * medication reviewed as below * symptomatic treatment * follow culture. * prognosis is guarded Review of Systems - Review of Systems Other: unable to review with pt due to level of her cognitive status - Medications/Allergies Allergies/Adverse Reactions: Allergies Allergy/AdvReac Type Severity Reaction Status Date / Time Iodine and Iodide Containing Allergy Verified 04/29/17 10:35 Produc meperidine HCl [From Demerol] Allergy Verified 04/29/17 10:35 Medications: Current Medications Acetaminophen (Tylenol) 650 mg MD Q4H PRN PRN Reason: Headache/Fever or Pain Last Admin: 02/27/18 19:39 Dose: 650 mg Hydrocodone Bitart/Acetaminophen ([place]ettus 5/325) 1 tab PO Q4H PRN PRN Reason: Moderate Pain (4-6) Al Hydroxide/Mg Hydroxide (Maalox) 30 ml PO Q6H PRN PRN Reason: Heartburn or Indigestion Albuterol/Ipratropium (Duoneb) 3 ml NEB [id number] [facility] Amantadine HCl (Symmetrel) 100 mg PO BID [facility] Last Admin: 02/28/18 09:43 Dose: 100 mg Amlodipine Besylate (Norvasc) 5 mg PO DAILY [facility] Last Admin: 02/28/18 09:44 Dose: 5 mg Artificial Tears (Tears Renewed 15ml Bottle) 0 drop EA EYE PRN PRN PRN Reason: Dry Eyes Aspirin (Aspirin Chewable) 81 mg PO DAILY [facility] Last Admin: 02/28/18 09:45 Dose: 81 mg Atorvastatin Calcium (Lipitor) 20 mg PO HS [facility] Last Admin: 02/27/18 20:11 Dose: 20 mg Carbidopa/Levodopa (Sinemet Cr 50/200) 0.5 tab PO 0600,1000,1400,1800 [facility] Last Admin: 02/28/18 09:15 Dose: 0.5 tab Carbidopa/Levodopa (Sinemet Cr 50/200) 0.5 tab PO 2200 [facility] Last Admin: 02/27/18 20:38 Dose: 0.5 tab Clonidine (Catapres) 0.1 mg PO Q4H PRN PRN Reason: Systolic BP > 180 Clopidogrel Bisulfate (Plavix) 75 mg PO DAILY [facility] Last Admin: 02/28/18 09:51 Dose: 75 mg Cyanocobalamin (Vitamin B-12) 1,000 mcg PO DAILY [facility] Last Admin: 02/28/18 09:02 Dose: Not Given Enoxaparin Sodium (Lovenox) 60 mg SC 0900,2100 [facility] Last Admin: 02/28/18 09:51 Dose: 60 mg Folic Acid (Folvite) 1 mg PO DAILY [facility] Last Admin: 02/28/18 09:01 Dose: Not Given Gabapentin (Neurontin) 600 mg PO HS [facility] Last Admin: 02/27/18 20:11 Dose: 600 mg Guaifenesin (Robitussin Sf) 200 mg PO Q4H PRN PRN Reason: Cough Hydralazine HCl (Apresoline) 10 mg SLOW IVP Q4H PRN PRN Reason: Systolic BP > 180 Hydrochlorothiazide (Hydrochlorothiazide) 25 mg PO QAM [facility] Last Admin: 02/28/18 09:18 Dose: 25 mg Levofloxacin 500 mg/ Device 100 mls @ 100 mls/hr IVPB Q24HR@1000 [facility] Last Admin: 02/28/18 10:21 Dose: 100 mls Cefepime HCl 2 gm/ Syringe 2.5 (ml/ Sodium Chloride) 12.5 mls @ 150 mls/hr SLOW IVP Q12HR [facility] Last Admin: 02/28/18 09:32 Dose: 12.5 mls Vancomycin HCl 1.25 gm/ Sodium (Chloride) 250 mls @ 166.667 mls/hr IVPB 1000 [facility] Levothyroxine Sodium (Synthroid) 50 mcg PO 0600 [facility] Last Admin: 02/28/18 09:42 Dose: 50 mcg Loperamide HCl (Imodium) 2 mg PO PRN PRN PRN Reason: Diarrhea/Loose Stools Loratadine (Claritin) 10 mg PO DAILYPRN PRN PRN Reason: Sinus Symptoms Losartan Potassium (Cozaar) 100 mg PO DAILY [facility] Last Admin: 02/28/18 09:18 Dose: 100 mg Lubiprostone (Amitiza) 24 mcg PO BID-[facility] Last Admin: 02/27/18 18:43 Dose: Not Given Magnesium Hydroxide (Milk Of Magnesium) 30 ml PO DAILYPRN PRN PRN Reason: Constipation Melatonin (Melatonin) 10 mg PO HS [facility] Last Admin: 02/27/18 20:15 Dose: Not Given Metoprolol Succinate (Toprol Xl) 50 mg PO DAILY [facility] Last Admin: 02/28/18 09:18 Dose: 50 mg Mineral Oil/White Petrolatum (Eucerin Cream) 0 gm TOP BIDPRN PRN PRN Reason: Dry Skin Mirabegron (Myrbetriq Er) 25 mg PO DAILY [facility] Last Admin: 02/27/18 11:00 Dose: 25 mg Miscellaneous Medication (Pharmacy To Dose) 1 each IVPB PRN PRN PRN Reason: Pharmacy to dose Mometasone Furoate (Asmanex Hfa 200 Mcg) 1 puff INH BID-RT [facility] Last Admin: 02/28/18 07:41 Dose: 1 puff Multivitamins/Minerals (Ocuvite With Lutein) 1 tab PO BID [facility] Last Admin: 02/28/18 09:03 Dose: Not Given Ondansetron HCl (Zofran Odt) 4 mg PO Q6H PRN PRN Reason: Nausea/Vomiting Ondansetron HCl (Zofran) 4 mg IVP Q6H PRN PRN Reason: Nausea/Vomiting Pantoprazole Sodium (Protonix) 40 mg PO DAILY [facility] Last Admin: 02/28/18 09:51 Dose: 40 mg Phenol (Chloraseptic [place] 180 Ml Bot) 0 ml PO PRN PRN PRN Reason: Sore Throat Rivastigmine (Exelon Patch) 9.5 mg TD DAILY [facility] Last Admin: 02/28/18 09:53 Dose: 9.5 mg Saccharomyces Boulardii (Florastor) 250 mg PO DAILY [facility] Last Admin: 02/28/18 09:51 Dose: 250 mg Senna (Senokot) 2 tab PO HSPRN PRN PRN Reason: Constipation Sodium Chloride ([place] Nasal [place] 0.65%) 0 ml EA NARE QIDPRN PRN PRN Reason: Nasal Congestion Sodium Chloride (Flush - Normal Saline) 10 ml IVF Q12HR [facility] Last Admin: 02/28/18 09:53 Dose: 10 ml Sodium Chloride (Flush - Normal Saline) 10 ml IVF PRN PRN PRN Reason: Saline Flush
[2018-02-28] MEDS: Lubiprostone 24 MCG CAP PO SCH ×2 (12:31→18:23)
--- NOTE | 2018-02-28 13:07 | RAD ---
PORTABLE CHEST: History: Dyspnea. Comparison: 02-26-18 FINDINGS: There are new infiltrates seen in both lungs when compared to the 02-26-18 exam. There is now diffuse h azy alveolar infiltrate seen throughout the left mid and lower lung with evidence of left effusion. T here is early hazy interstitial and alveolar infiltrate in the right lung base. IMPRESSION: There are new bilateral infiltrates, more extensive on the left when compared to the prior study. POS: [facility]
[2018-02-28] MEDS ORDERED: Furosemide 40 MG/4 ML VIAL IVP SCH (16:30)
--- NOTE | 2018-02-28 17:04 | PRG ---
DATE OF SERVICE: 02/28/2018 SUBJECTIVE: Ms. Ybarra, according to her is back to her baseline. He does state that she izabella ears to have shallow breathing. No chest pain or pressure or other associated symptoms noted. Her m ost recent echo did suggest LVEF 40%-45% with akinesis along the distal anterior wall and apex. This is consistent with her most recent myocardial infarction. OBJECTIVE: VITAL SIGNS: Blood pressure 147/71, pulse 85, temperature 98.9. LUNGS: Crackles noted bilaterally. CARDIAC: Regular rate and rhythm. ABDOMEN: Soft, nontender, nondistended. EXTREMITIES: No edema. LABORATORY DATA: Hemoglobin 9.7, peak troponin 10, peak MB of 27, creatinine 0.69. IMPRESSION: 1. Recent myocardial infarction. 2. Advanced Parkinson disease. RECOMMENDATIONS: Ms. Ybarra does have findings suggesting pulmonary edema. Chest x-ray also suggeste d the above. We would recommend one dose of Lasix at 40 mg IV and reassess in a.m. She will likely be placed in the next 1-2 days. She is currently on amlodipine, aspirin, atorvastatin, and metoprolo l. If she developed chest pain, we would recommend long-acting nitrates. We would also continue dayanna narvaez.
[2018-02-28] MEDS: Atorvastatin Calcium 20 MG TAB PO SCH (22:17)
[2018-02-28] MEDS: Melatonin 3 MG TAB PO SCH (22:18)
[2018-02-28] MEDS: Gabapentin 300 MG CAP PO SCH (22:18)
[2018-03-01] MEDS: Levothyroxine Sodium 50 MCG TAB PO SCH (05:44)
[2018-03-01] MEDS: Carbidopa/Levodopa CR 50-200 mg Tablet PO SCH (05:44)
[2018-03-01 07:45] LABS: Anion Gap 18 mmol/L (10-20); BUN (Urea Nitrogen) 23 mg/dL (9.8-20.1); Calc. Creatinine Clearance 45 mL/min (70-130); Calcium 9.6 mg/dL (7.8-10.44); Carbon Dioxide 24 mmol/L (23-31); Chloride 109 mmol/L (98-107); Estimated GFR-MDRD 70; Glucose 155 mg/dL (83-110); Sodium 148 mmol/L (136-145)
[2018-03-01] MEDS: Mometasone 200 MCG HFA INHALER INH SCH (07:48)
[2018-03-01 07:59] LABS: Potassium 2.7 mmol/L (3.5-5.1)
[2018-03-01 08:17] VITALS: BP 177/106; TEMP 97.6
[2018-03-01 08:32] LABS: Band 4 % (5-11); Hemoglobin 11.3 g/dL (12.0-16.0); Lymphocytes 8 % (21-51); MDiff Complete? YES; Macrocytosis SLIGHT = 6-15 cells (100X) (0-5/hpf); Mean Corpuscular HGB CONC 31.9 g/dL (32.0-36.0); Mean Corpuscular Hemoglobin 32.7 pg (27.0-31.0); Monocytes 5 % (0-10); Neutrophil 83 % (42-75); PLT Morphology Comment Appears Adequate; Platelet Count 197 thou/uL (130-400); Polychromasia SLIGHT = 2-3 cells (100X) (0-2/hpf); RBC Distribution Width 12.9 % (11.5-14.5); Red Blood Cell (RBC) Count 3.44 mill/uL (4.20-5.40); White Blood Cell (WBC) Count 16.2 thou/uL (4.8-10.8)
[2018-03-01] MEDS ORDERED: Potassium Chloride 40 MEQ in Sodium Chloride 0.9% 250 ML 250 ML IVPB SCH (09:00)
[2018-03-01] MEDS ORDERED: Furosemide 40 MG/4 ML VIAL SLOW IVP SCH (09:00)
[2018-03-01] MEDS: Lubiprostone 24 MCG CAP PO SCH (10:03)
[2018-03-01] MEDS: Cefepime 2 GM, Syringe 2.5 ML in Sodium Chloride 0.9% 10 ML SLOW IVP SCH (10:04)
[2018-03-01] MEDS: Amantadine HCl 100 mg Capsule PO SCH (10:04)
[2018-03-01] MEDS: Clopidogrel Bisulfate 75 MG TAB PO SCH (10:04)
[2018-03-01] MEDS: Amlodipine 5 MG TAB PO SCH (10:04)
[2018-03-01] MEDS: Hydrochlorothiazide 25 MG TAB PO SCH (10:05)
[2018-03-01] MEDS: Cyanocobalamin (Vitamin B-12) 1,000 MCG TAB PO SCH (10:05)
[2018-03-01] MEDS: Folic Acid 1 MG TAB PO SCH (10:05)
[2018-03-01] MEDS: Losartan 25 MG TAB PO SCH (10:05)
[2018-03-01] MEDS: Enoxaparin Sodium 60 MG/0.6 ML SYRINGE SC SCH (10:05)
--- NOTE | 2018-03-01 11:07 | DS ---
DATE OF ADMISSION: 02/26/2018 DATE OF : 03/01/2018 TIME OF : 9:52 a.m. PRIMARY CARE PHYSICIAN: Dr. Kofi Clay. PRIMARY CAUSE OF : 1. Acute ST-elevation myocardial infarction. 2. Acute systolic heart failure. 3. Aspiration pneumonia. 4. Acute encephalopathy. 5. Sepsis with acute organ dysfunction. 6. Urinary tract infection. CONTRIBUTING DIAGNOSES: 1. Parkinson's disease. 2. Severe tricuspid regurgitation. 3. Pulmonary hypertension. 4. Moderate mitral regurgitation. 5. Dementia. 6. Hypertension. 7. Hypothyroidism. 8. Macrocytic anemia. PRIMARY PROCEDURE AND OPERATION: None. RADIOLOGICAL INVESTIGATION: Chest x-ray, echocardiography. SIGNIFICANT LABORATORY DATA: WBC 16.2, MCV 102, hemoglobin 11.3, potassium 2.7 , troponin I 10.45. BNP 1875. Urine culture grew E. Proteus mirabilis. CONTRAINDICATIONS: None. CODE STATUS: The patient was DNR while in hospital. INPATIENT CONSULTANTS: Dr. Ang was consulted while in hospital. HOSPITAL COURSE: An 87-year-old female who was admitted by me. Please see my HPI for further detail. This patient lives at [facility] living department where she was having chills and shakiness. She was brought to the ER, patient was found with ST-elevation PA with elevated troponin. Cardiology was consulted. The patient's decided to make her comfortable and he was not interested in doing aggressive treatment. Patient was made DNR. Patient was DNR at skilled nursing as well. Subsequently, her troponin significantly increased in STEMI range. The patient was initially given heparin drip, but subsequently we treated her with Lovenox 1 mg per kg, aspirin, Plavix, statin therapy. Patient was also septic with acute organ dysfunction required empiric antibiotic therapy. Patient's condition gotten worse after admission. She was given some IV fluid. She developed pulmonary edema, congestive heart failure as well as aspiration pneumonia, which was treated with broad spectrum antibiotic therapy as well as Lasix. Echocardiography showed systolic dysfunction with severe valvular regurgitation. Patient was lethargic, encephalopathic and very weak. She was not waking up and that is why this morning, we decided to do CT brain, but before we do CT brain, patient was . The patient was seen and examined at bedside, even before and after passed out. The patient's goal of care and the plan of care discussed with the patient's family member before and after . Family member already planning to do hospice before the patient , but that did not require while in hospital because patient spontaneously . was pronounced and body was released for . HERLINDA
--- NOTE | 2018-03-02 21:35 | EKG ---
Test Reason : Blood Pressure : / mmHG Vent. Rate : 144 BPM Atrial Rate : 144 BPM P-R Int : 122 ms QRS Dur : 114 ms QT Int : 342 ms P-R-T Axes : 083 -74 064 degrees QTc Int : 529 ms Sinus tachycardia with occasional Premature ventricular complexes and Fusion complexes Left axis deviation Inferior-posterior infarct , possibly acute Anterior infarct , possibly acute Lateral injury pattern * ACUTE OR * Abnormal ECG Confirmed by JESSENIA DAY M.D. ([id number]), international editorial producer LEANDRO CLARK ([id number] on 03/02/2018 9:34:43 PM Referred By: SHAY Confirmed By:JESSENIA DAY M.D.
--- NOTE | 2018-03-02 21:35 | EKG ---
Test Reason : Blood Pressure : / mmHG Vent. Rate : 137 BPM Atrial Rate : 137 BPM P-R Int : 000 ms QRS Dur : 114 ms QT Int : 318 ms P-R-T Axes : 000 -72 047 degrees QTc Int : 480 ms Supraventricular tachycardia Left axis deviation Incomplete right bundle branch block Inferior infarct , possibly acute Anterolateral injury pattern * ACUTE [place] * Abnormal ECG Confirmed by JESSENIA DAY M.D. ([id number]), assistant film editor LEANDRO CLARK ([id number]) on 03/02/2018 9:34:42 PM Referred By: SHAY Confirmed By:JESSENIA DAY M.D.
== END 2018-03-01 11:00 | disposition expired | DRG 871 ==
LOC: ERS 08:03 → ERHOLD 11:19 → 2NO 15:33
PROVIDERS: ADMIT Internal Medicine; ATTEND Internal Medicine
DX: A41.9 Sepsis, unspecified organism (principal); I21.09 ST elevation (STEMI) myocardial infarction involving other coronary artery of anterior wall; J69.0 Pneumonitis due to inhalation of food and vomit; I50.21 Acute systolic (congestive) heart failure; G93.40 Encephalopathy, unspecified; L89.151 Pressure ulcer of sacral region, stage 1; E87.2 Acidosis; N39.0 Urinary tract infection, site not specified; J44.0 Chronic obstructive pulmonary disease with (acute) lower respiratory infection; R65.20 Severe sepsis without septic shock; G20 Parkinson's disease; F02.80 Dementia in other diseases classified elsewhere, unspecified severity, without behavioral disturbance, psychotic disturbance, mood disturbance, and anxiety; I07.1 Rheumatic tricuspid insufficiency; I10 Essential (primary) hypertension; E03.9 Hypothyroidism, unspecified; D64.9 Anemia, unspecified; Z66 Do not resuscitate; Z51.5 Encounter for palliative care; K21.9 Gastro-esophageal reflux disease without esophagitis; E78.5 Hyperlipidemia, unspecified; E87.6 Hypokalemia; K59.09 Other constipation; F41.8 Other specified anxiety disorders; E83.42 Hypomagnesemia
CPT/HCPCS: 36415; 36416; 51701; 71045; 80048; 80053; 80061; 80202; 81003; 81015; 82330; 82550; 82553; 82803; 83605; 83735; 83880; 84484; 85025; 85610; 85730; 87077; 87086; 87186; 87804; 93005; 93306; 94640; 96361; 96365; 96366; 96367; 96374; 96375; A4216; A4353; G8978-GP-CN; G8979-GP-CL; G8987-GO-CM; G8988-GO-CK; G8996-GN-CL; G8997-GN-CJ; G8997-GN-CK; J0692; J1200; J1644; J1650; J1940; J1956; J2930; J3370; J3475; J3480; J7050; J7620; S0028